=== PATIENT | male | born 1980 | race Caucasian/White ===

== ENCOUNTER → 2017-03-14 | Outpatient (CLI) | payer OTHER ==
--- NOTE | 2017-03-14 16:48 | RADIOLOGY REPORT PS360 ---
MRI-LOW EXT ANY JOINT W/O-RT MRI of the right knee HISTORY: ACUTE MEDIAL MENISCAL TEAR Patient Age: 36 years: Male Ordering Physician: ANUSHKA DE LA CRUZ TECHNIQUE: Multiplanar multisequence imaging 1.5 the MR COMPARISON :No previous studies FINDINGS Medial meniscal tear. Oblique tear extends through the inferior surface of the posterior horn. And extends into the body of medial meniscus as well. Anterior horn most likely is intact Scant reactive bone changes at the very medial corner of the medial tibial plateau beneath this meniscal tear noted. Cartilage is generally fairly well-maintained at the medial compartment.. At best only question some minor chondral scuffing and thinning at medial compartment. Medial femoral condyle with normal signal Lateral compartment appears intact. . The lateral meniscus is intact ..Cartilage maintained Patellofemoral joint. Suggestion minor chondral irregularity at the medial facet of patella. Moderate Joint effusion. Most evident lateral suprapatella bursa.. ACL and PCL intact. MCL and lateral collateral ligament appear intact. Quadriceps tendon and patellar tendon appear intact. Only Minor edema overlying patella. IMPRESSION 1.*Medial meniscal tear- involving body and posterior horn medial meniscus This is the significant finding . 2.. Moderate joint effusion 3. Minor cartilage irregularity suggested at medial facet of patella
== END ==
LOC: RAD 13:45
DX: S83.241A Other tear of medial meniscus, current injury, right knee, initial encounter (principal)